=== PATIENT | female | born 1985 | race Two or more races ===

== ENCOUNTER 2023-02-27 11:05 | Emergency (ER) | payer OTHER, MEDICAID ==
[~2023-02-27] VITALS: Ht 167.6 cm; Wt 101.0 kg
[2023-02-27 11:50] LABS: Urine Bacteria FEW /hpf (None Seen); Urine Blood Negative /uL (Negative); Urine Hyaline Cast FEW /lpf (0 - 2); Urine Specific Gravity 1.025 (1.001-1.035); Urine WBC 4 /hpf (0 - 5)
[2023-02-27] MEDS ORDERED: CEPH250C PO (13:32)
[2023-02-27 14:22] VITALS: BP 152/62
== END 2023-02-27 14:21 | disposition home or self-care (01) ==
LOC: ER 11:05
DX: N30.00 Acute cystitis without hematuria (principal); Z90.49 Acquired absence of other specified parts of digestive tract
CPT/HCPCS: 81001; 81025